=== PATIENT | male | born 1980 | race Caucasian/White ===

== ENCOUNTER 2019-08-24 21:34 | Inpatient (IN) ==
[2019-08-24] MEDS ORDERED: ceFAZolin 1,000 MG VIAL ONE (21:42)
[2019-08-24] MEDS ORDERED: ONDANSETRON 4 MG/2 ML VIAL ONE ×3 (21:42→23:45)
[2019-08-24] MEDS ORDERED: MORPHINE 4 MG/1 ML VIAL ONE (21:42)
[2019-08-24] MEDS ORDERED: HYDROmorphone 2 MG/1 ML VIAL ONE (21:43)
[2019-08-24] MEDS ORDERED: LACTATED RINGERS 1,000 ML IV STA (21:52)
[2019-08-24] MEDS ORDERED: HYDROmorphone 2 MG/1 ML VIAL IV STA (21:52)
[2019-08-24] MEDS ORDERED: DIPHTHERIA/TETANUS ADULT VACCINE 0.5 ML SYRINGE IM ONE (21:52)
[2019-08-24] MEDS ORDERED: ONDANSETRON 4 MG/2 ML VIAL IV STA (21:52)
[2019-08-24 22:02] LABS: Basophils # 0.1 10*3/uL (0.0-0.2); Basophils % 0.9 % (0.0-0.8); Eosinophils # 0.3 10*3/uL (0.0-0.87); Eosinophils % 3.1 % (0.00-10.9); Hematocrit 43.3 VOL% (42.0-52.0); Hemoglobin 13.9 GM/DL (14.0-18.0); Immature Granulocytes Absolute 0.08 #; Lymphocytes % 36.7 % (21.2-54.2); Mean Corpuscular HGB Conc 32.1 GM/DL (32-36); Mean Corpuscular Volume 94.5 FL (87-102); Mean Platelet Volume 10.5 FL (9.6-12.0); Monocytes % 6.6 % (1.7-12.7); Neutrophils % 51.7 % (38.7-73.9); Platelet Count 324 T/CUMM (130-400); Red Blood Count 4.58 MC/CUMM (3.8-5.5); Red Cell Distribution Width 12.8 % (9.3-17.3); White Blood Count 8.1 T/CUMM (4-12)
[2019-08-24 22:14] LABS: Alanine Aminotransferase 37 U/L (16-61); Albumin 3.6 G/DL (3.4-5.0); Alkaline Phosphatase 67 U/L (45-117); Amylase 40 U/L (25-115); Aspartate Amino Transferase 25 U/L (0-37); Bilirubin,Total < 0.39 MG/DL (0.2-1.0); Blood Urea Nitrogen 20 MG/DL (7-18); Calcium 8.3 MG/DL (8.5-10.1); Estimated Glom Filtration Rate 116 ML/MIN; Glucose 121 MG/DL (74-106); Osmolality,Calculated 286.1 MOS/KG (273-304)
[2019-08-24 22:16] LABS: Apearance,Urine CLEAR (Clear); Bilirubin,Urine Negative (Negative); Blood, Urine Negative (Negative); Glucose,Urine (UA) Negative (Negative); Ketones,Urine Negative (Negative); Mucus,Urine Occasional /LPF (Occasional); Nitrite,Urine Negative (Negative); Protein,Urine Negative; RBC,Urine <1 /HPF (0-4); Urine Color Yellow (Yellow); Urine Specific Gravity 1.026 (1.001-1.035); Urine Urobilinogen < 2.0 EU/DL (0.2-1.0); WBC,Urine 1 /HPF (0-6)
[2019-08-24] MEDS ORDERED: ONDANSETRON 4 MG/2 ML VIAL IV PRN ×2 (22:26→23:09)
[2019-08-24] MEDS ORDERED: PROMETHAZINE INJ 25 MG in SODIUM CHLORIDE 0.9% 50 ML IV PRN (22:26)
[2019-08-24] MEDS ORDERED: MEPERIDINE 25 MG/1 ML VIAL IV PRN (22:26)
[2019-08-24] MEDS ORDERED: diphenhydrAMINE 50 MG/1 ML VIAL IV PRN (22:26)
[2019-08-24 22:40] LABS: Barbiturates Screen,Urine Negative (Negative); Benzodiazepines Screen,Urine Negative (Negative); Cannabinoid Screen,Urine Negative (Negative); Opiate Screen,Urine Negative (Negative); Phencyclidine Screen,Urine Negative (Negative)
[2019-08-24] MEDS ORDERED: SEVOFLURANE 1 UNIT/15 MINUTE INH ONE (23:31)
[2019-08-24] MEDS ORDERED: MIDAZOLAM 2 MG/2 ML VIAL ONE (23:31)
[2019-08-24] MEDS ORDERED: LIDOCAINE 2% 5 ML VIAL ONE (23:31)
[2019-08-24] MEDS ORDERED: fentaNYL 250 MCG/5 ML VIAL ONE (23:31)
[2019-08-24] MEDS ORDERED: ROCURONIUM 100 MG/10 ML VIAL IV ONE (23:32)
[2019-08-24] MEDS ORDERED: SODIUM CHLORIDE 0.9% 1,000 ML IV ONE (23:32)
[2019-08-24] MEDS ORDERED: GLYCOPYRROLATE 0.4 MG/2 ML VIAL ONE (23:32)
[2019-08-24] MEDS ORDERED: NEOSTIGMINE 10 MG/10 ML VIAL ONE (23:32)
[2019-08-24] MEDS ORDERED: DEXAMETHASONE 4 MG/1 ML VIAL ONE (23:32)
[2019-08-24] MEDS ORDERED: SUCCINYLCHOLINE 200 MG/10 ML VIAL ONE (23:32)
[2019-08-24] MEDS ORDERED: ACETAMINOPHEN 1,000 MG/100 ML VIAL IV ONE (23:32)
[2019-08-24] MEDS ORDERED: ETOMIDATE 40 MG/20 ML VIAL IV ONE (23:32)
[2019-08-24] MEDS ORDERED: KETOROLAC 30 MG/1 ML VIAL ONE (23:32)
[2019-08-24] MEDS ORDERED: MEPERIDINE 25 MG/1 ML VIAL ONE (23:45)
[2019-08-24] MEDS: DEXTROSE 5% LACTATED RINGERS 1,000 ML IV SCH (23:55)
[2019-08-25 01:33] LABS: Hematocrit 42.4 VOL% (42.0-52.0); Hemoglobin 13.5 GM/DL (14.0-18.0)
[2019-08-25 01:40] LABS: Osmolality,Calculated 282.4 MOS/KG (273-304)
[2019-08-25 03:47] LABS: Basophils % 0.1 % (0.0-0.8); Eosinophils % 0.1 % (0.00-10.9); Hematocrit 42.4 VOL% (42.0-52.0); Hemoglobin 13.7 GM/DL (14.0-18.0); Immature Granulocytes % 0.3 %; Immature Granulocytes Absolute 0.04 #; Lymphocytes # 0.6 10*3/uL (1.4-4.0); Lymphocytes % 4.6 % (21.2-54.2); Mean Corpuscular HGB Conc 32.3 GM/DL (32-36); Mean Corpuscular Volume 94.2 FL (87-102); Mean Platelet Volume 10.6 FL (9.6-12.0); Monocytes % 5.5 % (1.7-12.7); Neutrophils % 89.4 % (38.7-73.9); Platelet Count 253 T/CUMM (130-400); Red Cell Distribution Width 12.8 % (9.3-17.3); White Blood Count 13.5 T/CUMM (4-12)
[2019-08-25] MEDS ORDERED: SODIUM CHLORIDE 0.9% 500 ML IV ONE (04:35)
[2019-08-25] MEDS: MORPHINE 4 MG/1 ML VIAL IV PRN ×3 (04:59→20:40)
[2019-08-25 06:27] LABS: Hematocrit 41.6 VOL% (42.0-52.0); Hemoglobin 13.6 GM/DL (14.0-18.0)
[2019-08-25 06:38] LABS: Band Neutrophils 1 % (0-10); Lymphocytes 7 % (20-55); Platelet Estimate Normal; Segmented Neutrophils 90 % (50-85); Total Cells Counted 100
[2019-08-25 15:34] LABS: Hematocrit 39.8 VOL% (42.0-52.0); Hemoglobin 13.1 GM/DL (14.0-18.0)
[2019-08-25] MEDS: DEXTROSE 5% LACTATED RINGERS 1,000 ML IV SCH ×2 (20:41→20:44)
[2019-08-26] MEDS: MORPHINE 4 MG/1 ML VIAL IV PRN ×2 (00:34→04:22)
[2019-08-26] MEDS: DEXTROSE 5% LACTATED RINGERS 1,000 ML IV SCH ×3 (00:36→17:47)
[2019-08-27] MEDS: DEXTROSE 5% LACTATED RINGERS 1,000 ML IV SCH ×3 (02:45→16:25)
[2019-08-27] MEDS ORDERED: CALCIUM CARBONATE CHEW 500 MG TABLET PO PRN (11:10)
[2019-08-28 07:45] LABS: Basophils # 0.1 10*3/uL (0.0-0.2); Basophils % 0.7 % (0.0-0.8); Eosinophils # 0.3 10*3/uL (0.0-0.87); Eosinophils % 4.1 % (0.00-10.9); Hematocrit 38.9 VOL% (42.0-52.0); Hemoglobin 12.7 GM/DL (14.0-18.0); Immature Granulocytes % 0.8 %; Immature Granulocytes Absolute 0.06 #; Lymphocytes # 1.6 10*3/uL (1.4-4.0); Lymphocytes % 21.7 % (21.2-54.2); Mean Corpuscular HGB Conc 32.6 GM/DL (32-36); Mean Corpuscular Volume 92.2 FL (87-102); Mean Platelet Volume 10.1 FL (9.6-12.0); Monocytes % 7.2 % (1.7-12.7); Neutrophils % 65.5 % (38.7-73.9); Platelet Count 251 T/CUMM (130-400); Red Blood Count 4.22 MC/CUMM (3.8-5.5); White Blood Count 7.3 T/CUMM (4-12)
[2019-08-28 12:09] VITALS: BP 132/87
== END 2019-08-28 16:00 | disposition home or self-care (01) | DRG 331 ==
LOC: EDBD → EDUNIT# → N.ED 21:34 → N.3E 21:56 → N.EDINP 23:09 → N.3E 08-25 00:43
PROVIDERS: ADMIT Surgery; ATTEND Surgery